=== PATIENT | female | born 1945 | race African-American/Black ===

== ENCOUNTER 2024-03-20 13:37 | Outpatient (CLI) | payer BC, SELFPAY ==
--- NOTE | ~2024-03-20 | US_ITS ---
EXAMINATION: US carotid duplex BI DATE: 03/20/2024 14:12 INDICATION: Cerebrovascular disease, unspecified. TECHNIQUE: Grayscale, color Doppler, and pulsed Doppler images of the cervical carotid arteries were obtained. The degree of vessel stenosis is placed in one of the following categories: normal, <50%, 5 0-69%, >=70% but less than near-occlusion, near-occlusion, or total occlusion. Note that percent sten osis relative to normal distal artery lumen diameter is indirectly measured from velocity measurement s as described by Chang, et al. Radiology 2003; 229:340-346. COMPARISON: None. FINDINGS: RIGHT: The right common carotid artery (CCA) peak systolic velocity (PSV) is 90 cm/s. The right internal car otid artery (ICA) PSV is 123 cm/s. The right ICA end-diastolic velocity (EDV) is 30 cm/s. The right I CA/CCA PSV ratio is 1.4. Grayscale and color Doppler images yield an estimate of <50% diameter reduct ion from plaque in the ICA. There is antegrade flow in the right vertebral artery. LEFT: The left CCA PSV is 103 cm/s. The left ICA PSV is 147 cm/s. The left ICA EDV is 30 cm/s. The left ICA /CCA PSV ratio is 1.4. Grayscale and color Doppler images yield an estimate of <50% diameter reductio n from plaque in the ICA. There is antegrade flow in the left vertebral artery. IMPRESSION: 1. <50% stenosis in the right internal carotid artery. 2. <50% stenosis in the left internal carotid artery. Reviewed, dictated and finalized at location A.
== END 2024-03-20 13:38 | disposition home or self-care (01) ==
PROVIDERS: PCP Internal Medicine; Visit Provider Psychiatry & Neurology Neurology
DX: I65.23 Occlusion and stenosis of bilateral carotid arteries (principal); R56.9 Unspecified convulsions; I67.9 Cerebrovascular disease, unspecified
CPT/HCPCS: 93880